=== PATIENT | female | born 1995 | race Two or more races ===

== ENCOUNTER 2023-10-17 12:56 | Outpatient (CLI) | payer OTHER | END 2023-10-17 13:00 | disposition home or self-care (01) | LOC: PRENATAL 12:56 | PROVIDERS: ATTEND Obstetrics & Gynecology Maternal & Fetal Medicine | DX: O36.80X0 Pregnancy with inconclusive fetal viability, not applicable or unspecified (principal); Z36.82 Encounter for antenatal screening for nuchal translucency; Z3A.14 14 weeks gestation of pregnancy ==

== ENCOUNTER 2023-11-23 13:16 | Outpatient (CLI) | payer OTHER | END 2023-11-23 13:17 | disposition home or self-care (01) | LOC: PRENATAL 13:16 | PROVIDERS: ATTEND Obstetrics & Gynecology Maternal & Fetal Medicine | DX: O35.3XX0 Maternal care for (suspected) damage to fetus from viral disease in mother, not applicable or unspecified (principal); O44.00 Complete placenta previa NOS or without hemorrhage, unspecified trimester; Z3A.20 20 weeks gestation of pregnancy ==

== ENCOUNTER 2024-02-13 10:27 | Outpatient (CLI) | payer OTHER | END 2024-02-13 10:28 | disposition home or self-care (01) | LOC: PRENATAL 10:27 | PROVIDERS: ATTEND Obstetrics & Gynecology Maternal & Fetal Medicine | DX: O26.843 Uterine size-date discrepancy, third trimester (principal); O36.8130 Decreased fetal movements, third trimester, not applicable or unspecified; O99.013 Anemia complicating pregnancy, third trimester; Z3A.31 31 weeks gestation of pregnancy ==

== ENCOUNTER 2024-04-10 12:40 | Inpatient (IN) | payer OTHER ==
[~2024-04-10] VITALS: Ht 152.4 cm; Wt 65.8 kg
[2024-04-10 12:40] VITALS: BP 123/86
[2024-04-10] MEDS ORDERED: MISOPROSTOL 25 MCG/4 ML GEL.W.APPL VAG NR ×2 (13:00→18:30)
[2024-04-10] MEDS ORDERED: RINGERS SOLUTION,LACTATED 1,000 ML IV SCH (14:30)
[2024-04-10 14:41] LABS: PH,URINE 6.5 (5.0-8.0); URINE APPEARANCE Clear; URINE BILIRRUBIN Negative (NEGATIVE); URINE BLOOD Negative; URINE COLOR Yellow; URINE GLUCOSE Negative (NEGATIVE); URINE KETONE Negative (NEGATIVE); URINE LEUKOCYTE Moderate; URINE NITRATE Negative; URINE PROTEIN 30 (NEGATIVE)
[2024-04-10 14:44] LABS: URINE BACTERIA 1014.2 uL (0.0-1933); URINE RBC 4.1 uL (0.0-20.8); URINE WBC 124.8 uL (0.0-23.2)
[2024-04-10 14:44] LABS: HEMATOCRIT 39.5 % (36.0-45.00); HEMOGLOBIN 13.4 g/dL (12.0-15.00); MEAN CELL VOLUME 86.2 fL (80.00-100.00); MEAN CORPUSCULAR HEMOGLOBIN 29.3 pg (27.00-32.0); PLATELET COUNT 265 K/uL (150-450); RED BLOOD COUNT 4.58 M/uL (4.00-6.00)
[2024-04-10 14:48] LABS: RED CELL DISTRIBUTION WIDTH 25.1 % (11.5-14.5)
[2024-04-10 14:56] LABS: URINE MUCUS SCANT
[2024-04-10 15:11] LABS: INR < 0.93; PARTIAL THROMBOPLASTIN TIME 28.5 SECONDS (22.0-34.0); PROTHROMBIN TIME 10.1 SECONDS (9.0-11.5)
[2024-04-10 15:27] VITALS: BP 123/86
[2024-04-10 15:44] LABS: ALBUMIN 3.2 gm/dL (3.4-5.0); BILIRUBIN TOTAL 0.29 mg/dL (0.3-1.2); CALCIUM 9.4 mg/dL (8.5-10.1); CREATININE SERUM 0.68 mg/dL (0.55-1.02); GFR 103.79; GLOBULINA 4.6 G/DL (2.4-3.5); POTASSIUM 4.19 mEq/L (3.5-5.1); TOTAL PROTEIN 7.8 gm/dL (6.4-8.2)
[2024-04-10] MEDS ORDERED: AMPICILLIN SODIUM 2,000 MG VIAL IV STA (16:38)
[2024-04-10] MEDS ORDERED: AMPICILLIN SODIUM 2,000 MG VIAL ONE (16:51)
[2024-04-10] MEDS ORDERED: AMPICILLIN SODIUM 1,000 MG VIAL IV SCH (17:00)
[2024-04-10 23:34] VITALS: BP 129/82
[2024-04-11 04:26] VITALS: BP 137/84
[2024-04-11 07:29] VITALS: BP 123/81
[2024-04-11 11:21] VITALS: BP 131/74
[2024-04-11] MEDS ORDERED: PROMETHAZINE HCL 25 MG/ML AMPUL ONE ×2 (13:10→21:51)
[2024-04-11 13:24] VITALS: BP 139/81
[2024-04-11] MEDS ORDERED: PROMETHAZINE HCL 25 MG/ML AMPUL IV ONE (14:30)
[2024-04-11] MEDS ORDERED: MEPERIDINE HCL/PF 50 MG/ML VIAL IV ONE (15:30)
[2024-04-11 16:18] VITALS: BP 126/70
[2024-04-11] MEDS ORDERED: OXYTOCIN 10 UNITS/ML VIAL ONE (17:45)
[2024-04-11] MEDS ORDERED: ERYTHROMYCIN BASE 1 GM TUBE OP ONE ×2 (17:45→19:30)
[2024-04-11] MEDS ORDERED: OXYTOCIN 10 UNITS/ML VIAL IV ONE (19:30)
[2024-04-11] MEDS ORDERED: MORPHINE SULFATE 4 MG/ML VIAL IV ONE ×2 (20:55→21:25)
[2024-04-11] MEDS ORDERED: PROMETHAZINE HCL 25 MG/ML AMPUL IM SCH (21:00)
[2024-04-11] MEDS ORDERED: AMPICILLIN SODIUM 1,000 MG VIAL ONE (21:51)
[2024-04-11] MEDS ORDERED: MEPERIDINE HCL/PF 50 MG/ML VIAL IM PRN (22:15)
[2024-04-12] MEDS ORDERED: AMPICILLIN SODIUM 1,000 MG VIAL ONE (02:24)
[2024-04-12 04:20] VITALS: BP 137/84
[2024-04-12 08:00] VITALS: BP 129/84; BP 145/85
[2024-04-12] MEDS ORDERED: IBUprofen 800 MG TABLET PO PRN (09:15)
[2024-04-12 15:57] VITALS: BP 135/88
[2024-04-13 02:06] VITALS: BP 127/87
[2024-04-13 09:00] VITALS: BP 128/87
[2024-04-13 17:00] VITALS: BP 135/86
[2024-04-14 01:43] VITALS: BP 120/77
[2024-04-14 09:57] VITALS: BP 137/91
== END 2024-04-14 14:32 | disposition home or self-care (01) | DRG 788 ==
LOC: LDR 12:40 → O/R 04-11 18:26 → OB/GYN 04-11 19:23
PROVIDERS: ADMIT Obstetrics & Gynecology Obstetrics; ATTEND Obstetrics & Gynecology Obstetrics
PROC: 3E0P7VZ Introduction of Hormone into Female Reproductive, Via Natural or Artificial Opening (ICD-10-PCS; 2024-04-10)
PROC: 4A1HXCZ Monitoring of Products of Conception, Cardiac Rate, External Approach (ICD-10-PCS; 2024-04-10)
PROC: 3E033VJ Introduction of Other Hormone into Peripheral Vein, Percutaneous Approach (ICD-10-PCS; 2024-04-11)
PROC: 10D00Z1 Extraction of Products of Conception, Low, Open Approach (ICD-10-PCS; principal; 2024-04-11 18:00)
DX: O62.0 Primary inadequate contractions (principal); Z3A.40 40 weeks gestation of pregnancy; Z37.0 Single live birth; Z20.822 Contact with and (suspected) exposure to COVID-19